=== PATIENT | female | born 1990 | race Asian ===

== ENCOUNTER 2019-05-12 07:40 | Inpatient (IN) | payer OTHER ==
[2019-05-12] MEDS ORDERED: Lactated Ringers 1000 ML Bag* 1,000 ML IV ONE ×2 (09:50→11:44)
[2019-05-12] MEDS ORDERED: Buffered Lidocaine 1% SYRIN* 1 ML/SYRINGE INTRADERM ONE (09:50)
[2019-05-12] MEDS ORDERED: Lactated Ringers 1000 ML Bag* 1,000 ML IV SCH ×3 (10:00→20:00)
[2019-05-12] MEDS ORDERED: Lidocaine 1% w EPI 1:200,000* 30 ML VIAL ONE (10:59)
[2019-05-12] MEDS ORDERED: OBEPIDURAL* 250 ML EPIDURAL ONE (11:00)
[2019-05-12 11:08] LABS: ABS Lymphocytes 1.4 10^3/ul (1.0-4.8); ABS Monocytes 0.5 10^3/ul (0-0.8); ABS Neutrophils 8.2 10^3/ul (1.5-7.7); Eosinophil % 0.1 %; Hematocrit 34 % (35-47); Hemoglobin 11.4 g/dL (12.0-16.0); Lymphocyte % 13.4 %; Mean Corpuscular HGB Conc 34 g/dL (31-36); Mean Corpuscular Hemoglobin 31 pg (27-31); Mean Corpuscular Volume 91 fL (80-97); Mean Platelet Volume 8.8 fL (7.4-10.4); Platelet Count 175 10^3/uL (150-450); Red Blood Count 3.68 10^6 /uL (3.70-4.87); Red Cell Distribution Width 14 % (10-15); White Blood Count 10.2 10^3/uL (3.5-10.8)
[2019-05-12] MEDS ORDERED: EPHEDrine (Pressors)* 50 MG/ML VIAL IV PUSH PRN ×2 (11:44)
[2019-05-12] MEDS ORDERED: Phenylephrine 40 MCG/ML SYRINGE IV PUSH PRN ×2 (11:44)
[2019-05-12] MEDS ORDERED: Famotidine TAB* 20 MG PO PRN (11:44)
[2019-05-12] MEDS ORDERED: Sodium Citrate/Citric Acid* 15 ML UDC PO PRN (11:44)
[2019-05-12] MEDS ORDERED: OBEPIDURAL* 250 ML EPIDURAL SCH (12:00)
[2019-05-12] MEDS ORDERED: Bupivacaine 0.25% SDV PF* 10 ML VIAL INJ ONE (12:06)
--- NOTE | 2019-05-12 17:11 | HP ---
General Information - Reason for Visit Pt presents with ctx about every 5 min, getting more intense. No VB/LOF. Active FMs. - General Information Maternal Age: 28 Grav: 1 Para: 0 SAB: 0 IEA: 0 Estimated Due Date: 05/08/19 Determined By: LMP Gestational Age in Weeks/Days: 40+4 wks Maternal Blood Type and Rh: A Positive - Results this Serology/RPR Result: Non-Reactive Rubella Result: Immune HBsAg Result: Negative HIV Result: Negative GBS Culture Result: Negative Past Medical History Delivery History: See Records - G1 Pertinent Past Medical History: See Records - none Pertinent Past Surgical History: See Records - none - Antepartal Records Antepartal Records: Reviewed, Uncomplicated Review of Systems Constitutional: Comfortable CV Complaint: No Respiratory: Shortness of Breath: No Gastrointestinal: No Nausea/Vomiting Genitourinary: No Dysuria, No Bleeding, No Leaking Fluid Musculoskeletal: Contractions Neurological: No Headache Movement: Normal Exam VS normal, afebrile Lab Values - Entire Visit: Laboratory Tests 05/12/19 05/12/19 10:05 10:05 WBC 10.2 RBC 3.68 L Hgb 11.4 L Hct 34 L MCV 91 MCH 31 MCHC 34 RDW 14 Plt Count 175 MPV 8.8 Neut % (Auto) 80.8 Lymph % (Auto) 13.4 Lipscomb % (Auto) 5.4 Eos % (Auto) 0.1 Baso % (Auto) 0.3 Absolute Neuts (auto) 8.2 H Absolute Lymphs (auto) 1.4 Absolute Monos (auto) 0.5 Absolute Eos (auto) 0.0 Absolute Basos (auto) 0.0 Absolute Nucleated RBC 0.0 Nucleated RBC % 0.0 Blood Type A Positive Antibody Screen Negative - Measurements Height: 5 ft 4.96 in Weight: 157 lb Weight in lbs: 157.820028 Body Mass Index (BMI): 26.2 Pre- Weight: 113 lb Weight Gained This : 44 lbs and 0 ozs - Exam Breast: Breast Exam Deferred Heart: Normal Rhythm/Heart Sounds HEENT: No Significant Findings Lungs: Clear Bilaterally Rectal: Rectal Exam Deferred - Abdominal Exam Abdomen Exam: Non-Tender, Fundal Height Consistent with Dates - Ultrasound/Biophysical Profile Ultrasound Status: Not Done Targeted Exam Findings Estimated Weight: 7lb 4oz Cervical Exam: 4cm Effacement: 80% Station: -1 Presenting Part: Vertex Membrane Status: Intact Bleeding/Discharge: None EFM Findings - External Monitor Findings Baseline Heart Rate: 140 External Monitor Findings: Accelerations Present, No Pattern of Variable or Late Decelerations, Variability Moderate, Baseline Stable Contractions: Regular, Moderate Contraction Frequency: Q4-5 min Assessment/Plan - Assessment 40+4 wks in early labor, requests epidural. Very reassuring status. Expect . - Obstetrical Risk Factors Obstetrical Risk Factors: Post-Dates - Plan Plan: Admit - Anticipate Vaginal Delivery
[2019-05-12] MEDS ORDERED: Oxytocin in LR* 20 UNITS/1,000 ML BAG IVPB ONE (17:13)
[2019-05-12] MEDS ORDERED: Ibuprofen TAB* 600 MG PO PRN (19:25)
[2019-05-12] MEDS ORDERED: Witch Hazel PAD* JAR TOPICAL PRN (19:25)
[2019-05-12] MEDS ORDERED: Dibucaine 1% 28.35 GM TUBE PR PRN (19:25)
[2019-05-12] MEDS ORDERED: Acetaminophen TAB* 325 MG PO PRN (19:25)
--- NOTE | 2019-05-12 19:32 | PROCNOTE ---
[facility] OB: Delivery Note - Nursery Level of Nursery: Regular/Bedside - Perineum Perineal Injury: Midline Episiotomy Perineal Repair: By Delivering Practioner - Events Delivery Events of Note Comment: Pt progressed to C/C/+1 and began pushing. She pushed with varying degrees of effectiveness for over two hours, and progressed to +2, +3 with pushes. At that point, fetus was not descending further and pt was becoming exhausted. We discussed the option of vacuum assistance including possible risk of scalp bruising or bleeding. Pt desired to proceed. Anesthesia was good, and tsai was then removed. Kiwi vacuum placed without difficulty. With the next two contractions, pt pushed with good effort and gentle, steady traction was applied. A MLE was performed after injection of 1% lidocaine. Head then delivered in a controlled fashion. Shoulders delivered without difficulty, and the body followed. placed on mother's abdomen. Cord doubly clamped and cut by father. IV pitocin given. Placenta delivered spontaneously and intact. MLE repaired with 3-0 Vicryl Rapide in the usual fashion.
[2019-05-12] MEDS ORDERED: Oxytocin in LR* 20 UNITS/1,000 ML BAG IVPB SCH (20:00)
[2019-05-12] MEDS ORDERED: Simethicone TAB* 80 MG TAB.CHEW PO SCH (21:00)
[2019-05-12] MEDS ORDERED: Ammonia Inhalant* 1 EA AMP ONE (22:11)
[2019-05-12] MEDS ORDERED: Lidocaine 1% INJ* 10 MG/ML 30 ML SDV ONE (23:17)
[2019-05-13] MEDS: Docusate CAP* 100 MG PO SCH ×4 (00:40→20:44)
[2019-05-13 05:57] LABS: ABS Lymphocytes 1.5 10^3/ul (1.0-4.8); ABS Monocytes 1.1 10^3/ul (0-0.8); ABS Neutrophils 11.6 10^3/ul (1.5-7.7); Eosinophil % 0.1 %; Hematocrit 31 % (35-47); Hemoglobin 10.5 g/dL (12.0-16.0); Lymphocyte % 10.4 %; Mean Corpuscular HGB Conc 34 g/dL (31-36); Mean Corpuscular Hemoglobin 31 pg (27-31); Mean Corpuscular Volume 92 fL (80-97); Mean Platelet Volume 8.3 fL (7.4-10.4); Platelet Count 156 10^3/uL (150-450); Red Blood Count 3.39 10^6 /uL (3.70-4.87); Red Cell Distribution Width 14 % (10-15); White Blood Count 14.2 10^3/uL (3.5-10.8)
[2019-05-13] MEDS ORDERED: Ferrous Gluconate TAB* 324 MG TAB PO SCH (09:00)
[2019-05-14] MEDS: Docusate CAP* 100 MG PO SCH (08:30)
[2019-05-14 08:53] VITALS: BP 96/60
== END 2019-05-14 13:10 | disposition home or self-care (01) | DRG 807 ==
LOC: MCHOBOUT 07:40 → MCHOB 10:16
PROVIDERS: ADMIT Obstetrics & Gynecology; ATTEND Obstetrics & Gynecology
PROC: 10D07Z6 Extraction of Products of Conception, Vacuum, Via Natural or Artificial Opening (ICD-10-PCS; principal; 2019-05-12)
PROC: 10907ZC Drainage of Amniotic Fluid, Therapeutic from Products of Conception, Via Natural or Artificial Opening (ICD-10-PCS; 2019-05-12)
PROC: 0W8NXZZ Division of Female Perineum, External Approach (ICD-10-PCS; 2019-05-12)
DX: O48.0 Post-term pregnancy (principal); Z37.0 Single live birth; Z3A.40 40 weeks gestation of pregnancy
CPT/HCPCS: 36415; 85025; 86850; 86900; 86901; A9270-GY; J2001; J3490

== ENCOUNTER 2022-09-10 14:10 | Inpatient (IN) ==
[2022-09-10] MEDS ORDERED: Penicillin G Potassium IV 5,000,000 UNITS in NS 0.9% 100 ml BAG 100 ML IVPB ONE (15:12)
[2022-09-10] MEDS ORDERED: Nalbuphine 10 MG/ML 1 ML VIAL IV PRN (15:12)
[2022-09-10] MEDS ORDERED: Dinoprostone 10 MG VAG.SUPP VAGINAL ONE (15:12)
[2022-09-10] MEDS ORDERED: Lactated Ringers 1000 ml BAG 1,000 ML IV ONE (15:12)
[2022-09-10] MEDS ORDERED: Buffered Lidocaine 1% SYRIN 1 ml INTRADERM ONE (15:12)
[2022-09-10] MEDS ORDERED: Promethazine INJ(RESTRICTED) 25 MG/ML 1 ml VIAL IV PRN (15:12)
[2022-09-10 15:37] LABS: Urine Benzodiazepine Screen None Detected (None Detect); Urine Cannabinoids Screen None Detected (None Detect); Urine Opiates Screen None Detected (None Detect)
[2022-09-11 02:42] LABS: Hematocrit 37 % (35-47); Hemoglobin 11.9 g/dL (12.0-16.0); Mean Corpuscular HGB Conc 32 g/dL (31-36); Mean Corpuscular Hemoglobin 33 pg (27-31); Mean Corpuscular Volume 103 fL (80-97); Mean Platelet Volume 7.5 fL (7.4-10.4); Platelet Count 166 10^3/uL (150-450); Red Blood Count 3.59 10^6 /uL (3.70-4.87); Red Cell Distribution Width 15 % (10-15); White Blood Count 7.8 10^3/uL (3.5-10.8)
[2022-09-11] MEDS ORDERED: Oxytocin in LR 20,000 MILLI.UNIT/1,000 ML BAG IV SCH ×2 (08:45→20:15)
[2022-09-11] MEDS: Lactated Ringers 1000 ml BAG 1,000 ML IV SCH ×2 (08:53→15:24)
[2022-09-11] MEDS: Penicillin G Potassium IV 3,000,000 UNITS in NS 0.9% 100 ml BAG 100 ML IVPB SCH ×2 (13:17→17:01)
[2022-09-11] MEDS ORDERED: EPINEPHrine SULFITE FREE 1 MG/ML ONE ×2 (14:16→14:24)
[2022-09-11] MEDS ORDERED: OBEPIDURAL (200 ML) 200 ML EPIDURAL ONE (14:16)
[2022-09-11] MEDS ORDERED: Lidocaine 1% VIAL 10 MG/ML VIAL 30 ML ONE ×2 (14:17→14:24)
[2022-09-11] MEDS ORDERED: Lactated Ringers 1000 ml BAG 500 ML IV PRN (15:24)
[2022-09-11] MEDS ORDERED: Phenylephrine 40 mcg/mL 10mL (400mcg) SYRINGE IV PUSH PRN ×2 (15:24)
[2022-09-11] MEDS ORDERED: Sodium Citrate/Citric Acid LIQ 15 ML UDC PO PRN (15:24)
[2022-09-11] MEDS ORDERED: Lactated Ringers 1000 ml BAG 1,000 ML IV ONE (15:24)
[2022-09-11 15:52] LABS: Urine Appearance Clear; Urine Bilirubin Negative (Negative); Urine Blood 2+ (Negative); Urine Color Straw; Urine Glucose 1+(50 mg/dL) (Negative); Urine Ketones Negative (Negative); Urine Nitrite Negative (Negative); Urine Protein Negative (Negative); Urine Specific Gravity 1.015 (1.002-1.030); Urine Urobilinogen Negative (Negative)
[2022-09-11 15:58] LABS: Urine Bacteria Absent (Absent); Urine Red Blood Cell 3+(>10/hpf) (Absent); Urine White Blood Cell Absent (Absent)
[2022-09-11] MEDS ORDERED: Lactated Ringers 1000 ml BAG 1,000 ML IV SCH ×3 (16:00→21:00)
[2022-09-11] MEDS ORDERED: OBEPIDURAL (200 ML) 200 ML EPIDURAL SCH (16:00)
[2022-09-11] MEDS ORDERED: Witch Hazel PAD JAR TOPICAL PRN (20:03)
[2022-09-11] MEDS ORDERED: Dibucaine 1% OINT 28.35 GM TUBE PR PRN (20:03)
[2022-09-11] MEDS ORDERED: Glycerin ADULT 2.4 gm SUPP PR PRN (20:03)
[2022-09-12 07:04] LABS: ABS Lymphocytes 1.6 10^3/ul (1.0-4.8); ABS Monocytes 0.6 10^3/ul (0-0.8); ABS Neutrophils 7.4 10^3/ul (1.5-7.7); Eosinophil % 0.2 %; Hematocrit 32 % (35-47); Hemoglobin 11.1 g/dL (12.0-16.0); Lymphocyte % 16.4 %; Mean Corpuscular HGB Conc 34 g/dL (31-36); Mean Corpuscular Hemoglobin 34 pg (27-31); Mean Corpuscular Volume 100 fL (80-97); Mean Platelet Volume 7.7 fL (7.4-10.4); Platelet Count 144 10^3/uL (150-450); Red Blood Count 3.25 10^6 /uL (3.70-4.87); Red Cell Distribution Width 15 % (10-15); White Blood Count 9.6 10^3/uL (3.5-10.8)
[2022-09-12] MEDS: Penicillin G Potassium IV 3,000,000 UNITS in NS 0.9% 100 ml BAG 100 ML IVPB SCH (21:00)
[2022-09-13 08:25] VITALS: BP 111/67
== END 2022-09-13 16:33 | disposition home or self-care (01) | DRG 806 ==
LOC: MCHOBOUT 14:10 → MCHOB 15:19
PROVIDERS: ADMIT Obstetrics & Gynecology; ATTEND Obstetrics & Gynecology